=== PATIENT | female | born 1995 | race American Indian/Alaskan Native ===

== ENCOUNTER 2018-09-26 13:48 | Emergency (ER) | payer SELFPAY ==
[2018-09-26 14:09] VITALS: BP 136/68
[2018-09-26] MEDS ORDERED: IBUPROFEN PO ONE (14:18)
[2018-09-26] MEDS ORDERED: TRIMOX PO ONE (14:18)
--- NOTE | 2018-09-26 14:20 | Emergency Department Report ---
Minor Respiratory - HPI Chief Complaint: Sore Throat Stated Complaint: COLD SX Time Seen by Provider: 09/26/18 14:15 Duration: 3 Days Pain Location: Throat Severity: mild Minor Respiratory: Yes Sore Throat, Yes Able to Tolerate Fluids, No Rhinorrhea, No Ear Pain, No Cough, No Sick Contacts, No Hemoptysis, No Chest Pain, No Shortness of Breath, No Fever Other History: 22 YO AA female to ER today with sore throat. ED Review of Systems ROS: Stated complaint: COLD SX Other details as noted in HPI Comment: All other systems reviewed and negative Constitutional: fever (mild). denies: chills Eyes: denies: eye pain ENT: as per HPI, throat pain. denies: ear pain Respiratory: denies: cough Cardiovascular: denies: chest pain ED Past Medical Hx - Past Medical History Previous Medical History?: No - Surgical History Past Surgical History?: No - Family History Family history: no significant - Social History Smoking Status: Never Smoker Substance Use Type: None - Medications Home Medications: Home Medications Medication Instructions Recorded Confirmed Last Taken Type Amoxicillin 500 mg PO BID #20 capsule 09/26/18 Unknown Rx Minor Respiratory Exam - Exam General: Vital signs noted. No distress. Alert and acting appropriately. HEENT: Yes Pharyngeal Erythema, Yes Pharyngeal Exudates, Yes Moist Mucous Membranes, No Rhinorrhea, No Conjuctival Injection, No Frontal Tenderness, No Maxillary Tenderness Ear: Neither TM Bulge, Neither TM Erythema, Neither EAC Pain, Neither EAC Discharge Neck: Yes Adenopathy, No Supple Lungs: Yes Good Air Exchange, No Wheezes, No Ronchi, No Stridor, No Cough, No Labored Respirations, No Retractions, No Use of Accessory Muscles, No Other Abnormal Lung Sounds Heart: Yes Regular, No Murmur Abdomen: Yes Normal Bowel Sounds, No Tenderness, No Peritoneal Signs Skin: No Rash, No Edema Neurologic: Alert and oriented, no deficits. Musculoskeletal: Unremarkable. ED Course Vital Signs 09/26/18 14:07 Temperature 99.2 F Pulse Rate 93 H Respiratory 16 Rate Blood Pressure 136/68 O2 Sat by Pulse 100 Oximetry ED Medical Decision Making - Medical Decision Making non toxic taking po exudates bilateral - Differential Diagnosis urti Critical care attestation.: If time is entered above; I have spent that time in minutes in the direct care of this critically ill patient, excluding procedure time. ED Disposition Clinical Impression: URTI (acute upper respiratory infection), Pharyngitis Disposition: DC- TO HOME OR SELFCARE Is pt being admited?: No Does the pt Need Aspirin: No Condition: Stable Instructions: Pharyngitis (ED), Upper Respiratory Infection (ED), Tonsillitis (ED) Additional Instructions: MED ORDERED TODAY MOTRIN OR TYLENOL FOR PAIN OR FEVER FOLLOW UP CLINIC REFERRAL BELOW THEY CAN DO YOUR ROUTINE HEALTH CARE. Prescriptions: Amoxicillin 500 mg PO BID #20 capsule Referrals: [facility] [Outside] - 3-5 Days Forms: Work/School Release Form(ED) Time of Disposition: 14:17
== END 2018-09-26 15:04 | disposition home or self-care (01) ==
LOC: ED 13:48
DX: J06.9 Acute upper respiratory infection, unspecified (principal); J02.9 Acute pharyngitis, unspecified
CPT/HCPCS: 87116; 87430; 99283

== ENCOUNTER 2018-12-05 11:55 | Emergency (ER) | payer OTHER ==
--- NOTE | 2018-12-05 12:37 | Emergency Department Report ---
Blank Doc - Documentation Documentation: 22 y o female presents to ED cc of vaginal d/c with some irritation ua, upt ACC evaluate
[2018-12-05 13:51] LABS: Bacteria,Urine 1+ /HPF (Negative); Mucus,Urine 1+ /HPF
[2018-12-05 13:52] LABS: Bilirubin,Urine NEG (Negative); Blood,Urine NEG (Negative); Color,Urine Yellow (Yellow); Protein,Urine <15 mg/dL mg/dL (Negative)
[2018-12-05 13:55] LABS: HCG Qualitative,Urine Negative (Negative)
[2018-12-05] MEDS ORDERED: FLAGYL PO ONE (16:14)
--- NOTE | 2018-12-05 16:14 | Emergency Department Report ---
ED Female HPI - General Chief complaint: Urogenital-Female Stated complaint: POSS YEAST INFECTION Time Seen by Provider: 12/05/18 12:33 Source: patient Mode of arrival: Ambulatory Limitations: No Limitations - History of Present Illness Initial comments: Patient is a 22-year-old Del[place] female who is presenting with possible yeast infection. Patient states that for the past 2-3 day she has had vaginal irritation. Patient states she's has mild urinary frequency as well. Patient believe that she has a yeast infection and bacterial vaginosis. Patient denies any unprotected sex. She denies any fevers chills nausea vomiting or back pain. - Related Data Previous Rx's Medication Instructions Recorded Last Taken Type Amoxicillin 500 mg PO BID #20 capsule 09/26/18 Unknown Rx Nitrofurantoin Monohyd/M-Cryst 100 mg PO BID #14 capsule 12/05/18 Unknown Rx [Macrobid 100 mg Capsule] Allergies Allergy/AdvReac Type Severity Reaction Status Date / Time No Known Allergies Allergy Verified 12/05/18 11:56 ED Review of Systems ROS: Stated complaint: POSS YEAST INFECTION Other details as noted in HPI Comment: All other systems reviewed and negative ED Past Medical Hx - Past Medical History Previous Medical History?: No - Surgical History Past Surgical History?: No - Social History Smoking Status: Never Smoker Substance Use Type: Alcohol - Medications Home Medications: Home Medications Medication Instructions Recorded Confirmed Last Taken Type Amoxicillin 500 mg PO BID #20 capsule 09/26/18 Unknown Rx Nitrofurantoin Monohyd/M-Cryst 100 mg PO BID #14 capsule 12/05/18 Unknown Rx [Macrobid 100 mg Capsule] ED Physical Exam - General Limitations: No Limitations General appearance: alert, in no apparent distress - Head Head exam: Present: atraumatic, normocephalic - Eye Eye exam: Present: normal appearance - ENT ENT exam: Present: mucous membranes moist - Neck Neck exam: Present: normal inspection - Respiratory Respiratory exam: Present: normal lung sounds bilaterally. Absent: respiratory distress, wheezes, rales - Cardiovascular Cardiovascular Exam: Present: regular rate, normal rhythm. Absent: systolic murmur, diastolic murmur, rubs, gallop - GI/Abdominal GI/Abdominal exam: Present: soft, normal bowel sounds. Absent: distended, tenderness, guarding, rebound, rigid - Extremities Exam Extremities exam: Present: normal inspection - Back Exam Back exam: Present: normal inspection - Neurological Exam Neurological exam: Present: alert, oriented X3 - Psychiatric Psychiatric exam: Present: normal affect, normal mood - Skin Skin exam: Present: warm, dry, intact, normal color. Absent: rash ED Course Vital Signs 12/05/18 12:32 Temperature 98.3 F Pulse Rate 79 Respiratory 15 Rate Blood Pressure 145/79 O2 Sat by Pulse 100 Oximetry ED Medical Decision Making - Lab Data Lab Results 12/05/18 Range/Units 12:43 Urine Color Yellow (Yellow) Urine Turbidity Slightly-cloudy (Clear) Urine pH 5.0 (5.0-7.0) Ur Specific [place] 1.030 (1.003-1.030) Urine Protein <15 mg/dl (Negative) mg/dL Urine Glucose (UA) Neg (Negative) mg/dL Urine Ketones Neg (Negative) mg/dL Urine Blood Neg (Negative) Urine Nitrite Neg (Negative) Ur Reducing Substances Not Reportable Urine Bilirubin Neg (Negative) Urine Ictotest Not Reportable Urine Urobilinogen 4.0 (<2.0) mg/dL Ur Leukocyte Esterase Lg (Negative) Urine WBC (Auto) 4.0 (0.0-6.0) /HPF Urine RBC (Auto) 6.0 (0.0-6.0) /HPF U Epithel Cells (Auto) 8.0 (0-13.0) /HPF Urine Bacteria (Auto) 1+ (Negative) /HPF Urine Mucus 1+ /HPF Urine Yeast (Budding) 1+ /HPF Urine HCG, Qual Negative (Negative) - Medical Decision Making Patient has a benign abdomen and now feels a pelvic exam was needed at this timE given her history. The patient be given 2 g of Flagyl to cover for bacterial vaginosis. Patient also given Diflucan will be sent home with Macrobid. Critical care attestation.: If time is entered above; I have spent that time in minutes in the direct care of this critically ill patient, excluding procedure time. ED Disposition Clinical Impression: Acute cystitis, Yeast vaginitis Disposition: TO HOME OR SELFCARE Is pt being admited?: No Does the pt Need Aspirin: No Condition: Stable Instructions: Vulvovaginal Candidiasis (ED), Urinary Tract Infection in Women (ED) Referrals: AHSAN HERRERA MD [Primary Care Provider] - 3-5 Days Time of Disposition: 16:13
[2018-12-05] MEDS ORDERED: DIFLUCAN PO ONE (16:30)
[2018-12-05 16:56] VITALS: BP 132/69
== END 2018-12-05 16:57 | disposition home or self-care (01) ==
LOC: ED 11:55
DX: N30.00 Acute cystitis without hematuria (principal); B37.3 Candidiasis of vulva and vagina
CPT/HCPCS: 81001; 81025; 99283

== ENCOUNTER 2019-04-18 13:03 | Emergency (ER) | payer SELFPAY ==
--- NOTE | 2019-04-18 13:31 | Event Note ---
ED Screening Note Date of service: 04/18/19 Time: 13:26 ED Screening Note: This is a 23 y.o. F. that presents to the ER with vaginal irritation and urinary frequency for 1-2 weeks. This initial assessment/diagnostic orders/clinical plan/treatment(s) is/are subject to change based on patients health status, clinical progression and re- assessment by fellow clinical providers in the ED. Further treatment and workup at subsequent clinical providers discretion. Patient/guardian urged not to elope from the ED as their condition may be serious if not clinically assessed and managed. Initial orders include: Labs
[2019-04-18 14:39] LABS: Bilirubin,Urine NEG (Negative); Blood,Urine NEG (Negative); Color,Urine Yellow (Yellow); Mucus,Urine FEW /HPF; Protein,Urine <15 mg/dL mg/dL (Negative); WBC,Urine < 1.0 /HPF (0.0-6.0)
[2019-04-18 14:41] LABS: HCG Qualitative,Urine Negative (Negative)
[2019-04-18] MEDS ORDERED: ZITHROMAX PO ONE (16:24)
[2019-04-18] MEDS ORDERED: XYLOCAINE 1% MPF 5 mL INFILTRATI ONE (16:24)
[2019-04-18] MEDS ORDERED: ROCEPHIN IM ONE (16:24)
--- NOTE | 2019-04-18 16:25 | Emergency Department Report ---
<GWENDOLYN FU - Last Filed: 04/18/19 16:29> ED Female HPI - General Chief complaint: Urogenital-Female Stated complaint: VAGINAL IRRITATION Time Seen by Provider: 04/18/19 13:26 Source: patient Mode of arrival: Ambulatory Limitations: No Limitations - History of Present Illness Initial comments: 4-year-old female presents to ED with vaginal irritation 1 week. Patient reports burning to the labia, white vaginal discharge. Abdominal pain, dysuria, urinary frequency. Patient reports history of recurrent yeast infections. Patient reports unprotected sex. MD Complaint: vaginal discharge -: week(s) (1) Location: labia Radiation: non-radiating Consistency: constant Improves with: none Worsens with: none Are you Now?: No Associated Symptoms: vaginal discharge. denies: vaginal bleeding, abdominal pain, nausea/vomiting, fever/chills, dysuria, hematuria - Related Data Sexually active: Yes Previous Rx's Medication Instructions Recorded Last Taken Type Amoxicillin 500 mg PO BID #20 capsule 09/26/18 Unknown Rx Nitrofurantoin Monohyd/M-Cryst 100 mg PO BID #14 capsule 12/05/18 Unknown Rx [Macrobid 100 mg Capsule] Fluconazole [Diflucan TAB] 150 mg PO ONCE #1 tablet 04/18/19 Unknown Rx metroNIDAZOLE [Flagyl] 500 mg PO Q12HR #14 tab 04/18/19 Unknown Rx Allergies Allergy/AdvReac Type Severity Reaction Status Date / Time No Known Allergies Allergy Verified 12/05/18 11:56 ED Review of Systems Comment: All other systems reviewed and negative Constitutional: denies: chills, fever Gastrointestinal: denies: abdominal pain, nausea, vomiting Genitourinary: discharge. denies: dysuria, frequency, hematuria ED Past Medical Hx - Past Medical History Previous Medical History?: No - Surgical History Past Surgical History?: No - Social History Smoking Status: Never Smoker Substance Use Type: None - Medications Home Medications: Home Medications Medication Instructions Recorded Confirmed Last Taken Type Amoxicillin 500 mg PO BID #20 capsule 09/26/18 Unknown Rx Nitrofurantoin Monohyd/M-Cryst 100 mg PO BID #14 capsule 12/05/18 Unknown Rx [Macrobid 100 mg Capsule] Fluconazole [Diflucan TAB] 150 mg PO ONCE #1 tablet 04/18/19 Unknown Rx metroNIDAZOLE [Flagyl] 500 mg PO Q12HR #14 tab 04/18/19 Unknown Rx ED Physical Exam - General Limitations: No Limitations General appearance: alert, in no apparent distress - Head Head exam: Present: atraumatic, normocephalic - Eye Eye exam: Present: normal appearance, PERRL, EOMI - ENT ENT exam: Present: mucous membranes moist - Neck Neck exam: Present: normal inspection - Respiratory Respiratory exam: Present: normal lung sounds bilaterally. Absent: respiratory distress - Cardiovascular Cardiovascular Exam: Present: regular rate, normal rhythm - GI/Abdominal GI/Abdominal exam: Present: soft. Absent: distended, tenderness - External exam: Present: normal external exam. Absent: erythema, swelling Speculum exam: Present: normal speculum exam, vaginal discharge (small amt of white discharge). Absent: cervical discharge Bi-manual exam: Absent: cervical motion tendernes, adnexal tenderness - Extremities Exam Extremities exam: Present: normal inspection - Neurological Exam Neurological exam: Present: alert, oriented X3 - Psychiatric Psychiatric exam: Present: normal affect, normal mood - Skin Skin exam: Present: warm, dry, intact, normal color ED Disposition Clinical Impression: Bacterial vaginosis, Vaginal yeast infection, Possible exposure to STD Disposition: DC-01 TO HOME OR SELFCARE Condition: Stable Instructions: Bacterial Vaginosis (ED), Metronidazole (By mouth), Vulvovaginal Candidiasis (ED) Additional Instructions: Follow-up with a primary care doctor in 3-5 days or if symptoms worsen and continue return to emergency room as soon as possible. Prescriptions: Fluconazole [Diflucan TAB] 150 mg PO ONCE #1 tablet metroNIDAZOLE [Flagyl] 500 mg PO Q12HR #14 tab Referrals: TONIE ZARATE MD [Staff Physician] - 3-5 Days [facility] MD EZIO [Primary Care Provider] - 3-5 Days PRIMARY CAREMD [Referring] - 3-5 Days [facility] [Outside] - 3-5 Days [facility] [Outside] - 3-5 Days Forms: Work/School Release Form(ED) <GERONIMO HOPE - Last Filed: 04/18/19 17:39> ED Review of Systems ROS: Stated complaint: VAGINAL IRRITATION Other details as noted in HPI ED Course Vital Signs 04/18/19 04/18/19 13:29 17:00 Temperature 98 F 98.9 F Pulse Rate 76 83 Respiratory 18 16 Rate Blood Pressure 119/52 Blood Pressure 129/63 [Left] O2 Sat by Pulse 100 100 Oximetry ED Medical Decision Making - Medical Decision Making Patient was originally seen by Dr. Fu and was sent out to me for a pending wet prep. Patient received Rocephin and azithromycin by Dr. Fu for possible STD exposure. Will prep shows the patient has used infection as well as bacterial vaginosis. Patient be discharged with Flagyl and Diflucan. Patient was instructed to Follow-up with a primary care doctor in 3-5 days or if symptoms worsen and continue return to emergency room as soon as possible. At time of discharge, the patient does not seem toxic or ill in appearance. No acute signs of distress noted. Patient agrees to discharge treatment plan of care. No further questions noted by the patient. Critical care attestation.: If time is entered above; I have spent that time in minutes in the direct care of this critically ill patient, excluding procedure time. ED Disposition Is pt being admited?: No Does the pt Need Aspirin: No
[2019-04-18 17:33] VITALS: BP 129/63
== END 2019-04-18 18:04 | disposition home or self-care (01) ==
LOC: ED 13:03
DX: B37.3 Candidiasis of vulva and vagina (principal); N76.0 Acute vaginitis; B96.89 Other specified bacterial agents as the cause of diseases classified elsewhere
CPT/HCPCS: 81001; 81025; 87210; 87591; 96372; 99284; J0696